=== PATIENT | male | born 2000 | race African-American/Black ===

== ENCOUNTER 2024-07-19 10:14 | Emergency (ER) | payer OTHER ==
[~2024-07-19] VITALS: Ht 175.3 cm; Wt 70.0 kg
[2024-07-19 10:18] VITALS: TEMP 36.9; O2SAT 100
[2024-07-19 10:53] VITALS: BP 154/77; PULSE 86; RESP 18
[2024-07-19] MEDS: IBUPROFEN 600MG TABLET PO ONE (10:53)
[2024-07-19 11:21] VITALS: TEMP 98.4
[2024-07-19] MEDS: ACETAMINOPHEN 500MG TABLET PO ONE (11:21)
[2024-07-19] MEDS ORDERED: AMOX1TAB16 MT (11:59)
[2024-07-19] MEDS: BACITRACIN ZINC OINT UDPKT TOP NR (12:16)
== END 2024-07-19 12:29 | disposition home or self-care (01) ==
LOC: ER 10:14
DX: S41.152A Open bite of left upper arm, initial encounter (principal); S41.151A Open bite of right upper arm, initial encounter; W54.0XXA Bitten by dog, initial encounter; Y93.89 Activity, other specified; Y92.89 Other specified places as the place of occurrence of the external cause; Y99.8 Other external cause status
CPT/HCPCS: 73090; 99284